=== PATIENT | male | born 1970 | race Caucasian/White ===

== ENCOUNTER 2020-11-24 09:53 | Emergency (ER) | payer OTHER ==
--- OUTSIDE RECORDS SUMMARY | 2020-11-24 10:21 | XMS REPORT ---
:[address] [facility] Address [address] [place], [place]. [address] [place] [address] Care Team Providers Name Role Phone Catalan Unavailable [phone] PROBLEMS Type Condition ICD9-CM ESN07-PW Onset Condition SNOMED Code Notes Code Code Dates Status Problem Fatigue, R53.83 Active 90068817 unspecified type Problem GERD without K21.9 Active 718020946 esophagitis Problem Generalized F41.1 Active 94593784 anxiety disorder Problem Rotator cuff M75.101 Active 2072391 syndrome of right shoulder Problem Mixed E78.2 Active 139435031 hyperlipidemia Problem Vitamin D E55.9 Active 76337214 deficiency Problem Vitamin B12 E53.8 Active 966388314 deficiency Problem Uncontrolled type E11.65 Active 239776655 2 diabetes mellitus with hyperglycemia, unspecified whether local intermodal truck driver insulin use ALLERGIES No Known Allergies ENCOUNTERS from 1970 to 2020-08-28 Encounter Location Date Provider Diagnosis [address] [place] Aug, [facility] Catalan Encounter for wellness [address] [place], [place] [address] Z00.00 ; Uncon trolled type 2 diabetes mellitus with hyperglycemia, unspecified whe ther local intermodal truck driver insul in use E11.65 ; Right shoulder pain, unspecifi ed chronicity M25. 511 ; Generalized anx iety disorder F41.1 ; Rotator cuff sy ndrome of right should er M75.101 ; Mixed hyperlipidemia E78.2 ; Impingement syn drome of right shoulder M75.41 ; Irritability an d anger R45.4 ; Glucosu navya R81 ; Fatigue, unsp ecified type R53.83 ; V itamin B12 deficiency E53.8 and Vitamin D deficiency E55. 9 IMMUNIZATIONS Vaccine Route Administration Date Status Afluria single dose IM Intramuscular Aug 21, 2019 Administere d Afluria IM Intramuscular Sep 17, 2018 Administered Vitamin B12 (Cyanocobalamin) IM Intramuscular Aug 21, 2019 Ad ministered Vitamin B12 (Cyanocobalamin) Unknown June 18, 2018 Pen ding Vitamin B12 (Cyanocobalamin) IM Intramuscular April 17, 2018 Ad ministered Adacel (Tdap) IM Intramuscular April 10, 2018 Administered SOCIAL HISTORY Tobacco Use: Social History Observation Description Date Details (start date - stop date) Never Smoker Sex Assigned At : Social History Observation Description Sex Assigned At Unknown PHQ9 Question Answer Notes Little interest or pleasure in doing things Not at all Feeling down, depressed, or hopeless Not at all Trouble falling or staying asleep or sleeping too much Not a t all Feeling tired or having little energy Several days Poor appetite or overeating Not at all Feeling bad about yourself, or that you are a failure, or No t at all have let yourself or your family down Trouble concentrating on things, such as reading the Not at all newspaper or watching television Moving or speaking so slowly that other people could have No t at all noticed; or the opposite, being so fidgety or restless that you have been moving around a lot more than usual Total Score 1 Interpretation Minimal Depression Thoughts that you would be better off or of hurting Not at all yourself in some way Depression Screening Question Answer Notes Over the past two weeks, has the PT felt down, depressed, or hopeless? No Over the past two weeks, has the PT felt little interest or pleasure in No doing things? Alcohol Screen Question Answer Notes Did you have a drink containing alcohol in the past year? No Points 0 Interpretation Negative Tobacco Use/Smoking Question Answer Notes Are you a never smoker REASON FOR REFERRAL No Information VITAL SIGNS Height 68 in Aug, Weight 186.2 lbs Aug, Temperature 97.3 degrees Fahrenheit Aug, BMI 28.31 kg/m2 Aug, Oximetry 99 % Aug, Respiratory Rate 16 /min Aug, Blood pressure systolic 115 mm Hg Aug, Blood pressure diastolic 71 mm Hg Aug, MEDICATIONS Medication SIG (Take, Route, Frequency, Start Date End Date Status Duration) Vitamin B-12 ER 2000 MCG 1 tablet Orally Once a day for 30 Active day(s) Vitamin D3 2000 UNIT 1 capsule Orally Once a day Active Simvastatin 20 MG 1 tablet in the evening Orally Active Once a day for 90 days MetFORMIN HCl ER 500 MG 2 tablet Orally BID for 90 days Active MetFORMIN HCl ER 500 MG TAKE ONE TABLET BY MOUTH TWICE A Active DAY for 90 PROCEDURES No Information RESULTS No Results REASON FOR VISIT Wellness, lab f/u *[phone] OUTSIDE MEDICAL (GENERAL) HISTORY Type Description Date Medical History Uncontrolled type 2 diabetes mellitus wi th hyperglycemia, unspecified whether shelter insulin us e Medical History Fatigue, unspecified type Medical History GERD without esophagitis Medical History Mixed hyperlipidemia Medical History Vitamin D deficiency Medical History Vitamin B12 deficiency Goals Section No Information Health Concerns No Information MEDICAL EQUIPMENT No Information MENTAL STATUS No Information FUNCTIONAL STATUS No Information ASSESSMENTS Encounter Date Diagnosis Notes Aug, Encounter for wellness examination in ad ult (ICD-10 - Z00.00) Aug, Mixed hyperlipidemia (ICD-10 - E78.2) Aug, Rotator cuff syndrome of right shoulder (ICD-10 - M75.101) Aug, Irritability and anger (ICD-10 - R45.4) Aug, Uncontrolled type 2 diabetes mellitus wi th hyperglycemia, 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 83) Aug, Glucosuria (ICD-10 - R81) Aug, Vitamin D deficiency (ICD-10 - E55.9) Aug, Vitamin B12 deficiency (ICD-10 - E53.8) PLAN OF TREATMENT Medication Medication Name Sig Start Date Stop Date Simvastatin 20 MG 1 tablet in the evening Orally Once a day for 90 days MetFORMIN HCl ER 500 MG 2 tablet Orally BID for 90 days Vitamin D3 2000 UNIT 1 capsule Orally Once a day Treatment Notes Assessment Notes Clinical Notes Encounter for wellness examination -- Wellness Exam performe d without in adult /Rectal examination (Asymptomatic) at this time.-- Encourage regular exercise and healthy diet.-- Take a baby aspirin daily: N/A.-- Consider having a flu vaccine every August or September.-- A complete exam is suggested yearly.-- Reminder to always use seat belts.-- It is suggested that lipids (fat and cholesterol) be checked on a yearly basis. The goal here would be to keep the bad cholesterol level (LDL) below 100.-- For colorectal cancer screening, return 1 stool hemoccult cards (test for hidden blood). The [employer] also suggests colonoscopy at age 50 and then every 10 years. If interested in this test, we can refer you to a surgeon or retort pre cooker.-- It is a good idea to periodically check the scrotum/testis for any new lumps or changes.-- It is a good idea to have a complete eye exam a minimum of every 3 years. Increased eye pressure is called glaucoma and it is a common cause of blindness.-- Encouraged on making dental appointment every 6-12 months for check-up-- Every 10 years, it is brewster to have a tuberculosis skin test (PPD) and D-Tetanus.-- Avoid excessive sun exposure.-- Apply sunscreen when outside. Check skin for any abnormal lesions/moles. Uncontrolled type 2 diabetes INCREASED to METFORMIN 500 mg E R 2 mellitus with hyperglycemia, tabs BID. STOPPED Glyxambi. Sathish e unspecified whether local intermodal truck driver effect and instructions given. , insulin use Diabetes Education Diabetes is a disorder that disrupts the way your body uses glucose (sugar). It is a chronic medication condition that requires regular monitoring and treatment throughout your life. Treatment includes: lifestyle modification, self-care measures, and medication. Fortunately, these treatments can keep the blood sugar levels close to normal and minimize the risk of developing complications. The primary blood test to measure the progress of diabetes is the Hemoglobin A1c. Normal levels is less than 7.0 but less than 6.5 is considered excellent control. Fasting blood sugars should be in the range of 80-120 while random blood sugars should range below 200 especially after meals. Carbohydrate (sugar) intake for diabetics should be below 45 grams per meal and 15 grams per snack. Diabetic preventive care is vital to prevent complications, so it is important to have yearly diabetic eye and foot exams with specialists. If your diabetes is not controlled, then contact your doctor to further address.Medication may need to be adjusted and/or added. Right shoulder pain, unspecified Discussed differential diag nosis chronicity with patient. Education given. Discussed supportive measures for symptomatic relief. X-ray reviewed. Avoid any exacerbating activity. Discussed treatment options including but not limited to physical therapy, cortisone injection, referral to orthopedic. Discussed usage of vsxj-yse-istvmam analgesic at this time. Use as directed. Minimal relief with frpl-mdi-qhdxyvn medication. No change with cortisone injection. ORDERED MRI. WIll refer to Ortho once MRI resulted. Generalized anxiety disorder Actively listented. Support giv en. Discussed treatment options. Medication + Counseling/Therapy. Infomation provided for psychologist for therapy options, encouraged to call to make an appt. DECLINED ANY MEDICATIONS. Concern with burnout with work. Education given. - Anxiety Education: Anxiety is a feeling of anxiousness or nervousness. Being extremely anxious or worried on most days for 6 months or longer is not normal. This is a type of anxiety disorder. This disorder can make it hard to do everyday tasks. Other types of anxiety include: post traumatic stress disorder, panic disorder, and phobias. Symptoms of anxiety may include: feeling worried or on the edge, trouble sleeping, or forgetting things. Feelings of stomach aches or chest tightness is another common symptom. Medicine, exercise, and other treatments like counseling, talk therapy, yoga, and massages maybe necessary to treat this disorder. Mixed hyperlipidemia INCREASED TO 20 mg. Hyperlipidemia Education: Hyperlipidemia refers to increased levels of lipids(fats) in the blood, including cholesterol and triglycerides. This can significantly increase your risk of developing coronary artery disease and peripheral artery disease. This can cause chest pain, heart attack, stroke, and fatigue. Treatment is recommended to decrease your risk. Treatment includes: lifestyle modification, low salt/low fat diet, exercise, tobacco cessation, low alcohol intake and sometimes medication. Blood tests (TC,TG, HDL, LDL) are utilized to determine treatment regimens. TC(Total cholesterol) should be below 200. TG(Total Triglycerides) should be below 150. HDL(Good cholesterol) should be above 40. LDL(Bad Cholesterol) should be below 130(if you have one risk factor) or less than 100( if you have more than one risk factor or have DM/CAD/PVD). Compliance with medication and treatment is vital. If you have questions, talk to your doctor. Irritability and anger Counseling given. Education given. Glucosuria Likely due to Dm and medications. Will repeat. Fatigue, unspecified type Increase sunlight + Hydration + Exercise. On Supplements for Vit B12 and Vit D. Vitamin B12 deficiency On supplements: Encouraged on compliance. Discussed IM vs. PO. Will trial IM. Side effect discussed. Vitamin D deficiency Discussed on causes of Vit D Def. Increase sunlight + Hydration + Exercise + Food High in Vit D and OTC supplements. Treatment Notes Test Name Order Date Lipid Panel With LDL/HDL Ratio 2020-08-28 UA/M w/rflx Culture, Comp 2020-08-28 Hemoglobin A1c 2020-08-28 Comp. Metabolic Panel (14) (CMP) 2020-08-28 Uric Acid, Serum 2020-08-28 CBC With Differential/Platelet 2020-08-28 TSH reflex to T4F 2020-08-28 MRI Shoulder Rt Wo Cont 2020-08-28 Next Appt Details 3 Months + Labs 1 week before Reason: Provider Name:Anselmo Catalan, 2020-12-01 0 8:15:00 AM, [address], [address], [place], [address], Provider Name:Anselmo Catalan, 2020-12-07 0 8:20:00 AM, [address], [address], [place], [address], Insurance Providers Payer Name Payer Payer Insured Patient Coverage Coverage End Address Phone Name Relationship to Start Date [place] Insured Community [phone] Bridger Forde self 2017 [employer] [id number] [facility] [address]
--- OUTSIDE RECORDS SUMMARY | 2020-11-24 10:21 | XMS REPORT | Continuity of Care Document ---
:1970 Author Organization [facility] t Address [address] [place] [address] Care Team Providers Name Role Phone Unavailable Unavailable Unavailable Problems This patient has no known problems. Allergies, Adverse Reactions, Alerts This patient has no known allergies or adverse reactions. Medications Ordered Filled Start Stop Current Ordering Indication Dosage Frequency Signature Comments Components Source Medication Medication Date Date Medication? Clinician (SIG) Name Name Vitamin D3 Vitamin D3 2018- 2018- No Anselmo [address] [facility] 04-17 07-21 [facility] :00 [facility] Simvastatin Simvastatin Yes Anselmo [address] [facility] Vitamin Vitamin Yes Anselmo [address] [facility] B-12 ER B-12 ER [facility] MetFORMIN MetFORMIN Yes Anselmo TAKE ONE [facility] HCl ER HCl ER Catalan TABLET BY [facility] - MOUTH Memoria TWICE A l DAY [facility] Immunizations Ordered Filled Immunization Date Status Comments Sourc e Immunization Name Name Afluria single dose Afluria single dose 2019-08-[address] [facility] - [facility]00 [facility] TDAP > 7 TDAP > 7 2018-04-[address] [facility] - Years-Adacel Years-Adacel 00:00:00 [facility] Procedures This patient has no known procedures. Encounters Start End Encounter Admission Attending Care Care Encounter Source Date/Time Date/Time Type Type Clinicians Facility Department ID 2020-08-28 2020-08-28 Outpatient [facility] [id number] [facility] Outpat[facility] ent Clin[facility] 2020-08-13 2020-08-13 [facility] [id number] [facility] 16[facility] 16[facility] [facility] [employer] l Medicine Outpati ent Clinics 2020-08-10 2020-08-10 [facility] [id number] [facility] 08:04:00 08:04:00 [place] - [employer] [facility] Medicine Outpati ent Clinics 2020-08-06 2020-08-06 [facility] [id number] 16:10:00 16:10:00 [place] - [employer] [facility] Medicine Outpati ent Clinics 2020-05-27 2020-05-27 [facility] [id number] 10:00:00 10:00:00 [place] - [employer] [facility] Medicine Outpati ent Clinics 2020-02-18 2020-02-18 [facility] [id number] [address] 08:30:00 08:30:00 [place] [employer] [facility] Medicine Outpati ent Clinics 2019-11-19 2019-11-19 [facility] [id number] 08:00:00 08:00:00 t [employer] [facility] Medicine Outpati ent Clinics 2019-11-12 2019-11-12 [facility] [id number] [address] 16:42:00 16:42:00 [place] [employer] [facility] Medicine Outpati ent Clinics 2019-08-21 2019-08-21 [facility] [id number] [address] 08:00:00 08:00:00 [place] [employer] [facility] Medicine Outpati ent Clinics 2019-08-05 2019-08-05 [facility] [id number] 13:30:00 13:30:00 [place] [employer] [facility] Medicine Outpati ent Clinics 2019-05-21 2019-05-21 [facility] [id number] [address] 08:15:00 08:15:00 [place] [employer] [facility] - Drive [facility] Medicine Outpati ent Clinics 2018-12-20 2018-12-20 [facility] [id number] 09:45:00 09:45:00 [place] [employer] [facility] - Drive [facility] Medicine Outpati ent Clinics 2018-06-18 2018-06-18 [facility] [id number] 08:45:00 08:45:00 [place] [employer] [facility] - Drive [facility] Medicine Outpati ent Clinics 2018-06-11 2018-06-11 [facility] [id number] [address] 11:57:00 11:57:00 [place] [employer] [facility] - Drive [facility] Medicine Outpati ent Clinics 2018-04-17 2018-04-17 [facility] [id number] [address] 09:00:00 09:00:00 [place] [employer] [facility] - Drive [facility] Medicine Outpati ent Clinics 2018-04-11 2018-04-11 [facility] [id number] 07:21:00 07:21:00 [place] [employer] [facility] - Drive [facility] Medicine Outpati ent Clinics 2018-04-10 2018-04-10 [facility] [id number] 10:30:00 10:30:00 [place] [employer] [facility] Medicine Outpati ent Clinics Results This patient has no known results.
--- NOTE | 2020-11-24 10:54 | RAD REPORT ---
EXAM DESCRIPTION: RAD - Forearm Right - 11/24/2020 10:47 am CLINICAL HISTORY: PAIN, blunt force trauma COMPARISON: No comparisons FINDINGS: No fracture is identified. There is no dislocation or periosteal reaction noted. No foreign body seen. No large hematoma in the soft tissues. IMPRESSION: Negative right forearm examination for acute or significant finding.
--- NOTE | 2020-11-24 10:55 | RAD REPORT ---
EXAM DESCRIPTION: RAD - Forearm Left - 11/24/2020 10:47 am CLINICAL HISTORY: PAIN, blunt force trauma COMPARISON: None. FINDINGS: No fracture is identified. There is no dislocation or periosteal reaction noted. No foreign body seen. No large hematoma in the soft tissues. IMPRESSION: Negative left forearm examination for acute or significant finding.
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
--- NOTE | 2020-11-24 11:05 | EDPHYS ---
Physician Documentation [facility] Name: Gabino Forde Age: 50 yrs Sex: Male : 1970 Arrival Date: 11/24/2020 Time: 09:55 Bed 15 Private MD: ED Physician Devyn Gil HPI: 11/24 10:13 This 50 yrs old Male presents to ER via Ambulatory with complaints of Arm rn Injury. 10:13 The patient or guardian complains of injury, pain. The complaints affect the dorsal rn aspect of right forearm, dorsal aspect of left forearm. Context: The problem was sustained at a parking lot, at a store, resulted from a crush injury. Onset: The symptoms/episode began/occurred just prior to arrival. Modifying factors: The symptoms are alleviated by remaining still, the symptoms are aggravated by movement. Severity of symptoms: At their worst the symptoms were moderate, in the emergency department the symptoms are unchanged. The patient has not experienced similar symptoms in the past. Reports jumpstarting battery, kidd fell on his arms, briefly trapped until latch opened, reports pain to bilateral forearms, worse on left. . Historical: - Allergies: 10:04 No Known Allergies; ll1 - PMHx: 10:04 High Cholesterol; diabetes type 2; ll1 - PSHx: 10:04 None; ll1 - Immunization history:: Flu vaccine is up to date. - Social history:: Smoking status: Patient denies any tobacco usage or history of. - Family history:: not pertinent. - Hospitalizations: : No recent hospitalization is reported. ROS: 10:13 Constitutional: Negative for fever, chills, and weight loss, MS/Extremity: + injury and rn pain to bilateral forearms. Skin: + linear contusions to bilateral forearms Exam: 10:13 Constitutional: This is a well developed, well nourished patient who is awake, alert, rn and in no acute distress. MS/ Extremity: Pulses equal, no cyanosis. Neurovascular intact. Full, normal range of motion. + mild tenderness bilateral distal/dosral forearms with linear contusions, no open wounds. Vital Signs: 10:04 BP 135 / 88; Pulse 93; Resp 18; Temp 98.6; Pulse Ox 99% ; Weight 81.65 kg; Height 5 ft. ll1 8 in. (172.72 cm); Pain 9/10; 11:33 BP 124 / 81; Pulse 87; Resp 17; Pulse Ox 97% on R/A; Pain 3/10; ll1 10:04 Body Mass Index 27.37 (81.65 kg, 172.72 cm) ll1 MDM: 10:05 Patient medically screened. rn 11:05 Differential diagnosis: closed fracture, contusion. Data reviewed: vital signs, nurses rn notes, radiologic studies, plain films, and as a result, I will discharge patient. Counseling: I had a detailed discussion with the patient and/or guardian regarding: the historical points, exam findings, and any diagnostic results supporting the discharge/admit diagnosis, radiology results, the need for outpatient follow up, to return to the emergency department if symptoms worsen or persist or if there are any questions or concerns that arise at home. Special discussion: I discussed with the patient/guardian in detail that at this point there is no indication for admission to the hospital. It is understood, however, that if the symptoms persist or worsen the patient needs to return immediately for re-evaluation. 11:05 Test interpretation: by ED physician or midlevel provider: plain radiologic studies, No tax intern fracture on xrays of left/right forearms. 11/24 10:13 Order name: XRAY Forearm RIGHT; Complete Time: 11:04 rn 11/24 10:13 Order name: XRAY Forearm LEFT; Complete Time: 11:04 rn Administered Medications: No medications were administered Disposition: 11/24/20 11:05 Discharged to Home. Impression: Contusion of left forearm, Contusion of right forearm. - Condition is Stable. - Discharge Instructions: Contusion. - Medication Reconciliation Form, Thank You Letter, Antibiotic Education, Prescription Opioid Use form. - Follow up: Private Physician; When: As needed; Reason: Recheck today's complaints, Re-evaluation by your physician. - Problem is new. - Symptoms have improved. Signatures: Dispatcher [employer] EDMS Devyn Gil MD MD rn Leal, Jahala, RN RN jl7 Jaleel Leon RN RN ll1 Corrections: (The following items were deleted from the chart) 11:36 11:05 11/24/2020 11:05 Discharged to Home. Impression: Contusion of left forearm; jl7 Contusion of right forearm. Condition is Stable. Forms are Medication Reconciliation Form, Thank You Letter, Antibiotic Education, Prescription Opioid Use. Follow up: Private Physician; When: As needed; Reason: Recheck today's complaints, Re-evaluation by your physician. Problem is new. Symptoms have improved. rn
[2020-11-24 11:47] VITALS: BP 135/88; TEMP 98.6; O2SAT 99
== END 2020-11-24 11:36 | disposition home or self-care (01) ==
LOC: ER 09:53
DX: S50.12XA Contusion of left forearm, initial encounter (principal); S50.11XA Contusion of right forearm, initial encounter; W23.0XXA Caught, crushed, jammed, or pinched between moving objects, initial encounter; Y93.89 Activity, other specified; Y92.481 Parking lot as the place of occurrence of the external cause
CPT/HCPCS: 99283

== ENCOUNTER 2021-03-08 09:25 | Emergency (ER) | payer OTHER ==
--- OUTSIDE RECORDS SUMMARY | 2021-03-08 09:28 | XMS REPORT | Continuity of Care Document ---
:1970 Author Organization [facility] t Address [address] [place] [address] Care Team Providers Name Role Phone Unavailable Unavailable Unavailable Problems This patient has no known problems. Allergies, Adverse Reactions, Alerts This patient has no known allergies or adverse reactions. Medications Ordered Filled Start Stop Current Ordering Indication Dosage Frequency Signature Comments Components Source Medication Medication Date Date Medication? Clinician (SIG) Name Name Vitamin D3 Vitamin D3 2018 2018- No Anselmo [address] [facility] 04-17[facility] :00 [facility] Clinics Simvastatin Simvastatin Yes Anselmo [address] [facility] Vitamin Vitamin Yes Anselmo [address] [facility] B-12 ER B-12 ER [facility] - [facility] MetFORMIN MetFORMIN Yes Anselmo TAKE ONE [facility] HCl ER HCl ER [facility]an TABLET BY [facility] - MOUTH [facility] TWICE A l DAY [facility] ent [facility] Immunizations Ordered Filled Immunization Date Status Comments Sourc e Immunization Name Name Afluria single dose Afluria single dose 2019-08-[address] [facility] - 00:[facility]00 [facility] Clin[facility] TDAP > 7 TDAP > 7 2018-04-[address] [facility] - Years-Adacel Years-Adacel 00:00:00 [facility] Procedures This patient has no known procedures. Encounters Start End Encounter Admission Attending Care Care Encounter Source Date/Time Date/Time Type Type Clinicians Facility Department ID 2020-12-07 2020-12-07 Outpatient [facility] [id number] [facility] 2020-08-28 2020-08-28 Outpatient [facility] [id number] [facility] 2020-08-13 2020-08-13 [facility] [id number] [facility] 16:[facility]00 16:[facility]:00 [place] [facility] Out[facility] Clin[facility] 2020-08-10 2020-08-10 [facility] [id number] [facility] 08:04:00 08:04:00 [place] [facility] 2020-08-06 2020-08-06 [facility] [id number] [facility] 16:10:00 16:10:00 [place] [facility] 2020-05-27 2020-05-27 [facility] [id number] [facility] 10[facility]00:00 10:00:00 t [place] [facility] 2020-02-18 2020-02-18 [facility] [id number] 08:30:00 08:30:00 [place] [facility] [employer] [facility] Clin[facility] 2019-11-19 2019-11-19 [facility] [id number] 08:00:00 08:00:00 t [place] [facility] Out[facility] Clin[facility] 2019-11-12 2019-11-12 [facility] [id number] 16:42:00 16:42:00 t [place] [facility] - [facility] Out[facility] Clin[facility] 2019-08-21 2019-08-21 [facility] [id number] 08:00:00 08:00:00 t [place] [facility] - [facility] Out[facility] Clin[facility] 2019-08-05 2019-08-05 [facility] [id number] [address] 13:30:00 13:30:00 [place] [facility] [employer] [facility] - [facility] 2019-05-21 2019-05-21 [facility] [id number] 08:15:00 08:15:00 [place] [employer] [facility] - Drive [facility] Clin[facility] 2018-12-20 2018-12-20 [facility] [id number] [facility] 09:45:00 09:45:00 [place] [employer] - Drive [facility] Clin[facility] 2018-06-18 2018-06-18 [facility] [id number] 08:45:00 08:45:00 [place] [employer] - [employer] Out[facility] Clin[facility] 2018-06-11 2018-06-11 [facility] [id number] 11:57:00 11:57:00 t [place] [employer] - [employer] Out[facility] Clin[facility] 2018-04-17 2018-04-17 [facility] [id number] 09:00:00 09:00:00 [place] [employer] - [employer] Clin[facility] 2018-04-11 2018-04-11 [facility] [id number] 07:21:00 07:21:00 [place] [employer] - [employer] [facility] Out[facility] Clin[facility] 2018-04-10 2018-04-10 [facility] [id number] 10:30:00 10:30:00 t [place] [facility] [facility] [employer] Clin[facility] Results This patient has no known results.
[2021-03-08 10:16] LABS: Urine Blood Negative (Negative); Urine Glucose Negative (Negative); Urine Protein Trace (Negative); Urine Specific Gravity 1.025 (1.005-1.030); Urine pH 5.5 (5.0-7.0)
[2021-03-08] MEDS ORDERED: MORPHINE 4 MG/ML SYR ONE (10:16)
[2021-03-08] MEDS ORDERED: ONDANSETRON 4 MG/2 ML VIAL ONE (10:16)
[2021-03-08] MEDS ORDERED: NA CHLORIDE 0.9% 1,000 ML ONE (10:16)
[2021-03-08 10:27] LABS: Basophils % 0.2 % (0-1.3); Hematocrit 44.8 % (39.6-49.0); Lymphocytes % 31.3 % (15.3-44.8); MPV 7.3 fL (7.6-11.3); RBC Red Blood Cell Count 5.51 M/uL (4.33-5.43)
[2021-03-08 10:38] LABS: Urine Bacteria <20 /HPF (NONE SEEN); Urine Mucus MOD /HPF (NONE SEEN); Urine RBC NONE SEEN /HPF (NONE SEEN)
--- NOTE | 2021-03-08 10:48 | RAD REPORT ---
EXAM DESCRIPTION: CT - Abdomen Pelvis W Contrast - 03/08/2021 10:15 am CLINICAL HISTORY: Abdominal pain/left flank pain COMPARISON: none. TECHNIQUE: Computed axial tomography of the abdomen pelvis was obtained. 100 cc Isovue-300 was admin istered intravenously. Oral contrast was not requested which limits evaluation of bowel and appendix. All CT scans are performed using dose optimization technique as appropriate and may include automated exposure control or mA/KV adjustment according to patient size. FINDINGS: The liver, spleen, pancreas, and adrenals appear unremarkable. Multiple gallstones. The gallbladder wall is not thickened. Bilateral renal cysts. There is no evidence of diverticulitis. Mild stranding is present within the omentum of the left lower abdomen at the level of the kidneys. A vague 2 centimeter low-density structure is present. This probably represents mesenteric fat infarc t. 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
[2021-03-08 10:52] LABS: ALT/SGPT 47 U/L (12-78); AST/SGOT 27 U/L (15-37); Albumin 3.6 g/dL (3.4-5.0); Alkaline Phosphatase 70 U/L (45-117); BUN Blood Urea Nitrogen 15 mg/dL (7-18); Bicarbonate 26 mmol/L (21-32); Bilirubin Direct 0.1 mg/dL (0-0.2); Bilirubin Total 0.3 mg/dL (0.2-1.0); Glucose Level 116 mg/dL (74-106); Lipase 98 U/L (73-393); Potassium 3.9 mmol/L (3.5-5.1); Protein, Total 7.8 g/dL (6.4-8.2); Sodium Level 139 mmol/L (136-145)
--- NOTE | 2021-03-08 11:45 | EDPHYS ---
Physician Documentation [facility] Name: Gabino Forde Age: 50 yrs Sex: Male : 1970 Arrival Date: 03/08/2021 Time: 09:26 Bed 13 Private MD: [facility] ED Physician South Salazar HPI: 03/08 10:06 This 50 yrs old Male presents to ER via Ambulatory with complaints of Flank pm1 Pain - left. 10:06 The patient complains of pain in the left low back. The pain does not radiate. Onset: pm1 The symptoms/episode began/occurred 2 day(s) ago. Modifying factors: The symptoms are alleviated by nothing. the symptoms are aggravated by movement. Associated signs and symptoms: Pertinent positives: abdominal pain in LLQ, Pertinent negatives: diarrhea, dysuria, fever, nausea, vomiting. Severity of pain: in the emergency department the pain is actually worse. The patient has not experienced similar symptoms in the past. The patient has not recently seen a physician. Historical: - Allergies: 09:47 No Known Allergies; bp - Home Meds: 09:48 Metformin Oral [Active]; Simvastatin Oral [Active]; iw - PMHx: 09:47 Diabetes Type 2; High Cholesterol; bp - Immunization history:: Adult Immunizations up to date. - Social history:: Smoking status: Patient denies any tobacco usage or history of. ROS: 10:06 Constitutional: Negative for fever, chills, and weight loss, Cardiovascular: Negative pm1 for chest pain, palpitations, and edema, Respiratory: Negative for shortness of breath, cough, wheezing, and pleuritic chest pain. 10:06 : Negative for injury, bleeding, discharge, and swelling, MS/Extremity: Negative for injury and deformity, Skin: Negative for injury, rash, and discoloration, Neuro: Negative for headache, weakness, numbness, tingling, and seizure. 10:06 Abdomen/GI: Positive for abdominal pain, of the left lower quadrant, Negative for nausea, vomiting, and diarrhea, constipation. 10:06 Back: Positive for flank pain, on the left. Exam: 10:06 Constitutional: This is a well developed, well nourished patient who is awake, alert, pm1 and in no acute distress. Head/Face: Normocephalic, atraumatic. 10:06 Skin: Warm, dry with normal turgor. Normal color with no rashes, no lesions, and no evidence of cellulitis. MS/ Extremity: Pulses equal, no cyanosis. Neurovascular intact. Full, normal range of motion. 10:06 Cardiovascular: Exam negative for acute changes, Rate: normal, Rhythm: regular, Pulses: no pulse deficits are appreciated. 10:06 Respiratory: Exam negative for acute changes, respiratory distress, shortness of breath, Breath sounds: are clear throughout. 10:06 Abdomen/GI: Inspection: abdomen appears normal, Palpation: soft, in all quadrants, mild abdominal tenderness, in the left upper quadrant and left lower quadrant. 10:06 Back: pain, that is mild, of the left low back, normal spinal alignment noted, vertebral tenderness, is not appreciated. 10:06 Neuro: Exam negative for acute changes, Orientation: is normal, Mentation: is normal, Motor: is normal, moves all fours. Vital Signs: 09:45 BP 120 / 80; Pulse 79; Resp 16; Temp 97.9; Pulse Ox 98% on R/A; Weight 85.28 kg; Height bp 5 ft. 8 in. (172.72 cm); Pain 9/10; 10:25 Pulse 79; Resp 16; Pulse Ox 97% ; bp 10:56 BP 118 / 74; Pulse 75; Resp 16; Pulse Ox 98% ; bp 12:06 BP 119 / 78; Pulse 75; Resp 16; Pulse Ox 100% ; bp 13:15 BP 111 / 81; Pulse 72; Resp 16; Temp 98; Pulse Ox 99% ; bp 09:45 Body Mass Index 28.59 (85.28 kg, 172.72 cm) bp MDM: 09:43 Patient medically screened. [facility] 11:35 Physician consultation: Ramana Hammonds MD was contacted at 11:35, regarding consult, pm1 patient's condition, outpatient follow-up, in 2-3 days, discharge the patient home with antibiotics and pain medications. Will see him in the office on Monday or this week. 11:46 Data reviewed: vital signs. Data interpreted: Pulse oximetry: on room air is 99 %. pm1 Interpretation: normal. 03/08 09:49 Order name: Basic Metabolic Panel; Complete Time: 10:56 pm1 03/08 09:49 Order name: CBC with Diff; Complete Time: 10:56 pm1 03/08 09:49 Order name: Hepatic Function; Complete Time: 10:56 pm1 03/08 09:49 Order name: Lipase; Complete Time: 10:56 pm1 03/08 09:49 Order name: Urine Microscopic Only; Complete Time: 10:56 pm1 03/08 10:16 Order name: Urine Dipstick-Ancillary EDMS 03/08 09:54 Order name: CT Abd/Pelvis - IV Contrast Only; Complete Time: 10:56 pm1 03/08 11:11 Order name: EKG; Complete Time: 11:12 pm1 03/08 12:56 Order name: CREATININE WHOLE BLOOD; Complete Time: 13:25 EDMS 03/08 09:49 Order name: IV Saline Lock; Complete Time: 10:22 pm1 03/08 09:49 Order name: Labs collected and sent; Complete Time: 10:22 pm1 03/08 09:49 Order name: Urine Dipstick-Ancillary (obtain specimen); Complete Time: 10:22 pm1 03/08 11:11 Order name: EKG - Nurse/Tech; Complete Time: 11:17 pm1 Administered Medications: 10:10 Drug: NS 0.9% 1000 ml Route: IV; Rate: 1000 ml; Site: right forearm; bp 12:52 Follow up: IV Status: Completed infusion; IV Intake: 1000ml bp 10:10 Drug: morphine 4 mg Route: IVP; Site: right forearm; bp 10:58 Follow up: Response: No adverse reaction bp 10:10 Drug: Zofran (Ondansetron) 4 mg Route: IVP; Site: right hand; bp 10:58 Follow up: Response: No adverse reaction bp 12:00 Drug: Cipro (ciprofloxacin) 500 mg Route: PO; bp 12:52 Follow up: Response: No adverse reaction bp 12:45 Drug: Flagyl 500 mg Volume: 100 ml; Route: IVPB; Rate: 200 ml/hr; Infused Over: 30 bp mins; Site: right forearm; 13:30 Follow up: IV Status: Completed infusion; IV Intake: 100ml bp Disposition: 03/08/21 11:44 Discharged to Home. 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 - Condition is Stable. - Discharge Instructions: Abdominal Pain, Adult. - Prescriptions for Flagyl 500 mg Oral Tablet - take 1 tablet by ORAL route every 8 hours for 10 days; 30 tablet. Tylenol- Codeine #3 300-30 mg Oral Tablet - take 2 tablet by ORAL route every 4-6 hours As needed; 30 tablet. Cipro 500 mg Oral Tablet - take 1 tablet by ORAL route every 12 hours for 10 days; 20 tablet. - Medication Reconciliation Form, Thank You Letter, Antibiotic Education, Prescription Opioid Use form. - Follow up: Emergency Department; When: As needed; Reason: Worsening of condition. Follow up: Ramana Hammonds MD; When: 2 - 3 days; Reason: Recheck today's complaints, Continuance of care, Re-evaluation by your physician. - Problem is new. - Symptoms have improved. Addendum: 03/10/2021 06:39 Co-signature as Attending Physician, South Salazar MD I agree with the assessment and c baevers plan of care. Signatures: Dispatcher [employer] South Hernandez MD MD cha Williams, Irene, RN RN iw Timbo Ybarra NP INKJET OPERATOR pm1 Aristeo Salinas RN RN bp Corrections: (The following items were deleted from the chart) 03/08 09:48 09:47 Home Meds: Unable to obtain; bp iw 13:30 11:44 03/08/2021 11:44 Discharged to Home. Impression: Small mesenteric fat infarct bp within the left abdomen. Condition is Stable. Forms are Medication Reconciliation Form, Thank You Letter, Antibiotic Education, Prescription Opioid Use. Follow up: Emergency Department; When: As needed; Reason: Worsening of condition. Follow up: Dr. Ramana Hammonds; When: 2 - 3 days; Reason: Recheck today's complaints, Continuance of care, Re-evaluation by your physician. Problem is new. Symptoms have improved. pm1
--- NOTE | 2021-03-08 11:45 | ER ---
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 Coronavirus screen: At this time, the client does not indicate any symptoms associated with coronavirus-19. Ebola Screen: Patient negative for fever greater than or equal to 101.5 degrees Fahrenheit, and additional compatible Ebola Virus Disease symptoms Patient denies exposure to infectious person. Patient denies travel to an Ebola-affected area in the 21 days before illness onset. No symptoms or risks identified at this time. Initial Sepsis Screen: Does the patient meet any 2 criteria? No. Patient's initial sepsis screen is negative. Does the patient have a suspected source of infection? No. Patient's initial sepsis screen is negative. Risk Assessment: Do you want to hurt yourself or someone else? Patient reports no desire to harm self or others. Onset of symptoms was March 06, 2021. 09:45 Method Of Arrival: Ambulatory iw 09:45 Acuity: LARRY 3 iw Triage Assessment: 09:45 General: Appears in no apparent distress. uncomfortable, Behavior is cooperative, bp appropriate for age, anxious. Pain: Complains of pain in posterior aspect of left lateral abdomen. EENT: No deficits noted. Neuro: No deficits noted. Cardiovascular: No deficits noted. Respiratory: No deficits noted. GI: No signs and/or symptoms were reported involving the gastrointestinal system. : No signs and/or symptoms were reported regarding the genitourinary system. Derm: No deficits noted. Musculoskeletal: No deficits noted. Historical: - Allergies: 09:47 No Known Allergies; bp - Home Meds: 09:48 Metformin Oral [Active]; Simvastatin Oral [Active]; iw - PMHx: 09:47 Diabetes Type 2; High Cholesterol; bp - Immunization history:: Adult Immunizations up to date. - Social history:: Smoking status: Patient denies any tobacco usage or history of. Screenin:47 Abuse screen: Denies threats or abuse. Denies injuries from another. Nutritional bp screening: No deficits noted. Tuberculosis screening: No symptoms or risk factors identified. Fall Risk None identified. Assessment: 09:45 General: SEE TRIAGE NOTE. bp 10:25 Reassessment: PT RETURNED FROM CT. bp 10:56 Reassessment: No changes from previously documented assessment. Patient and/or family bp updated on plan of care and expected duration. Pain level reassessed. Patient is alert, oriented x 3, equal unlabored respirations, skin warm/dry/pink. 12:00 Reassessment: D/C ON HOLD FOR IV ABX. bp 13:28 Reassessment: PT D/C HOME AMBULATORY, DX WITH MESENTERIC FAT INFARCT. bp Vital Signs: 09:45 BP 120 / 80; Pulse 79; Resp 16; Temp 97.9; Pulse Ox 98% on R/A; Weight 85.28 kg; Height bp 5 ft. 8 in. (172.72 cm); Pain 9/10; 10:25 Pulse 79; Resp 16; Pulse Ox 97% ; bp 10:56 BP 118 / 74; Pulse 75; Resp 16; Pulse Ox 98% ; bp 12:06 BP 119 / 78; Pulse 75; Resp 16; Pulse Ox 100% ; bp 13:15 BP 111 / 81; Pulse 72; Resp 16; Temp 98; Pulse Ox 99% ; bp 09:45 Body Mass Index 28.59 (85.28 kg, 172.72 cm) bp ED Course: 09:26 Patient arrived in ED. am2 09:27 Anselmo Catalan DO is Private Physician. am2 09:41 Timbo Ybarra NP is PHCP. pm1 09:41 South Salazar MD is Attending Physician. pm1 09:45 Aristeo Salinas, THANH is Primary Nurse. bp 09:45 Arm band placed on. bp 09:47 Patient has correct armband on for positive identification. Bed in low position. Call bp light in reach. Side rails up X2. 09:48 Triage completed. iw 10:10 Inserted saline lock: 20 gauge in right forearm, using aseptic technique. Blood bp collected. 10:15 CT Abd/Pelvis - IV Contrast Only In Process Unspecified. EDMS 11:44 Ramana Hammonds MD is Referral Physician. pm1 13:29 No provider procedures requiring assistance completed. IV discontinued, intact, bp bleeding controlled, No redness/swelling at site. Pressure dressing applied. Administered Medications: 10:10 Drug: NS 0.9% 1000 ml Route: IV; Rate: 1000 ml; Site: right forearm; bp 12:52 Follow up: IV Status: Completed infusion; IV Intake: 1000ml bp 10:10 Drug: morphine 4 mg Route: IVP; Site: right forearm; bp 10:58 Follow up: Response: No adverse reaction bp 10:10 Drug: Zofran (Ondansetron) 4 mg Route: IVP; Site: right hand; bp 10:58 Follow up: Response: No adverse reaction bp 12:00 Drug: Cipro (ciprofloxacin) 500 mg Route: PO; bp 12:52 Follow up: Response: No adverse reaction bp 12:45 Drug: Flagyl 500 mg Volume: 100 ml; Route: IVPB; Rate: 200 ml/hr; Infused Over: 30 bp mins; Site: right forearm; 13:30 Follow up: IV Status: Completed infusion; IV Intake: 100ml bp Intake: 12:52 IV: 1000ml; Total: 1000ml. bp 13:30 IV: 100ml; Total: 1100ml. bp Outcome: 11:44 Discharge ordered by MD. pm1 13:29 Discharged to home ambulatory. bp 13:29 Condition: stable 13:29 Discharge instructions given to patient, Instructed on discharge instructions, follow up and referral plans. medication usage, Demonstrated understanding of instructions, follow-up care, medications, Prescriptions given X 3. 13:30 Patient left the ED. bp Signatures: Dispatcher [employer] EDMS Devi Oliva RN RN iw Timbo Ybarra NP HEAD SAWYER pm1 Hannah Ray am2 Aristeo Salinas RN RN bp Corrections: (The following items were deleted from the chart) 09:48 09:47 Home Meds: Unable to obtain; bp iw 09:54 09:45 BP 120 / 80; Pulse 79bpm; Resp 16bpm; Pulse Ox 98% RA; 85.28 kg; Height 5 ft. 8 bp in.; BMI: 28.5; Pain 9/10; iw
[2021-03-08] MEDS ORDERED: CIPROFLOXACIN 400mg IV 400 MG/200 ML BAG IV ONE (12:20)
[2021-03-08] MEDS ORDERED: METRONIDAZOLE 500mg IVPB 500 MG/100 ML BAG IV ONE (12:20)
[2021-03-08 13:59] VITALS: BP 111/81; TEMP 98; O2SAT 99
--- NOTE | 2021-03-09 16:37 | EKG ---
Test Date: 2021-03-08 Test Time: 11:19:09 Technical Translator: KIRT MEASUREMENT RESULTS: Intervals: Rate: 68 KS: 154 QRSD: 78 QT: 380 QTc: 404 [place]: P: 43 KS: 154 QRS: 40 T: 34 INTERPRETIVE STATEMENTS: Normal sinus rhythm Normal ECG No previous ECG available for comparison Electronically Signed On 03-09-21 16:33:24 CDT by Stephen Thomas
== END 2021-03-08 13:30 | disposition home or self-care (01) ==
LOC: ER 09:25
DX: K55.029 Acute infarction of small intestine, extent unspecified (principal); E78.00 Pure hypercholesterolemia, unspecified; E11.9 Type 2 diabetes mellitus without complications
CPT/HCPCS: 93005; 85025; 80048; 36415; 82565; 80076; 83690; 74177; Q9967; J7030; J2405; J0744; 81003; 81015; 99284

== ENCOUNTER 2023-01-07 21:00 | Emergency (ER) | payer OTHER ==
--- OUTSIDE RECORDS SUMMARY | 2023-01-07 21:47 | XMS REPORT | Continuity of Care Document ---
:1970 Author Organization [facility] t Address [address] [place] [address] Care Team Providers Name Role Phone Anselmo Catalan Attending Clinician Unavailable Payers Payer Name Policy Type Policy Number Effective Date Expiration Date S ource Community C1 [id number] 2017 [facility] Choice 00:00:00 - [facility] Community C1 [id number] 2017 [facility] Choice 00:00:00 - [facility] Problems Condition Condition Condition Status Onset Resolution Last Treating Co mments Source Name Details Category Date Date Treatment Clinician Date [id number] Body mass Problem Com mon index Spirit [BMI] - [facility]I 31.0-31.9, [facility] [id number] Other Problem Common obesity Spirit due to - [facility]I excess calories [facility] [id number] GERD Problem Common without Spirit esophagiti - CHI s [facility] [id number] Uncontroll Problem Co mmon ed type 2 Spirit diabetes - CHI mellitus St with [facility] hyperglyce [facility] Center unspecifie d whether [facility] insulin use [id number] Calculus Problem Commo n of Spirit gallbladde - CHI r without St cholecysti [facility] without Center obstructio n [id number] Fatty Problem Common liver Spirit - [facility] [id number] Vitamin D Problem Comm on deficiency Spirit - [facility] [id number] Fatigue, Problem Commo n unspecifie Spirit d type - [facility] [id number] Mixed Problem Common hyperlipid Spirit emia [facility] [id number] Vitamin Problem Commo n B12 Spirit deficiency - [facility] [id number] Generalize Problem Com mon d anxiety [facility] disorder [facility] [id number] Rotator Problem Common cuff Spirit syndrome - [facility] of right [facility] [id number] Claustroph Problem Com mon obia [facility] Allergies, Adverse Reactions, Alerts This patient has no known allergies or adverse reactions. Social History Social Habit Start Date Stop Date Quantity Comments Source History of Tobacco Use Co mmon [facility] Sex Assigned At Com mon [facility] Smoking Status Start Date Stop Date Source Never Smoker Common [facility] Medications Ordered Filled Start Stop Current Ordering Indication Dosage Frequency Signature Comments Components Source Medication Medication Date Date Medication? Clinician (SIG) Name Name Vitamin D3 Vitamin D3 2021-0 2022- No 1{capsu Vitamin D3 09645 UNIT 17298 UNIT 02-07 le} 30380 UNIT 00:00: 00:00 00 :00 Vitamin D3 Vitamin D3 2022-0 2022- No 1{capsu Vitamin D3 94390 UNIT 60647 UNIT 02-07 le} 55181 UNIT 00:00: 00:00 00 :00 Vitamin B12 Vitamin B12 2019-0 No 1000ug Common (Cyanocobal (Cyanocobal 9-25 S pirit carrasco) carrasco) 00:00: - [facility] Vitamin B12 Vitamin B12 2019-0 No 1000ug Common (Cyanocobal (Cyanocobal 9-25 S pirit carrasco) carrasco) 00:00: - [facility] Vitamin B12 Vitamin B12 2019-0 No 1000ug Common (Cyanocobal (Cyanocobal 9-25 S pirit carrasco) carrasco) 00:00: - [facility] Vitamin B12 Vitamin B12 2019-0 No 1000ug Common (Cyanocobal (Cyanocobal 9-25 S pirit carrasco) carrasco) 00:00: - [facility] Vitamin B12 Vitamin B12 2019-0 No 1000ug Common (Cyanocobal (Cyanocobal 9-25 S pirit carrasco) carrasco) 00:00: - [facility] 00 [facility] Vitamin B12 Vitamin B12 2019-0 No 1000ug Common (Cyanocobal (Cyanocobal 9-25 S pirit carrasco) carrasco) 00:00: - [facility]I 00 [facility] Vitamin B12 Vitamin B12 2019-0 No 1000ug Common (Cyanocobal (Cyanocobal 9-25 S pirit carrasco) carrasco) 00:00: - [facility]I 00 [facility] Vitamin B12 Vitamin B12 2019-0 No 1000ug Common (Cyanocobal (Cyanocobal 9-25 S pirit carrasco) carrasco) 00:00: - [facility]I 00 [facility] Vitamin B12 Vitamin B12 2019-0 No 1000ug Common (Cyanocobal (Cyanocobal 9-25 S pirit carrasco) carrasco) 00:00: - [facility]I 00 [facility] Vitamin B12 Vitamin B12 2018-0 No 1000ug Common (Cyanocobal (Cyanocobal 7-23 S pirit carrasco) carrasco) 00:00: - [facility]I 00 [facility] Vitamin B12 Vitamin B12 2018-0 No 1000ug Common (Cyanocobal (Cyanocobal 7-23 S pirit carrasco) carrasco) 00:00: - [facility] 00 [facility] Vitamin B12 Vitamin B12 2018-0 No 1000ug Common (Cyanocobal (Cyanocobal 7-23 S pirit carrasco) carrasco) 00:00: - [facility] 00 [facility] Vitamin B12 Vitamin B12 2018-0 No 1000ug Common (Cyanocobal (Cyanocobal 7-23 S pirit carrasco) carrasco) 00:00: - [facility]I 00 [facility] Vitamin B12 Vitamin B12 2018-0 No 1000ug Common (Cyanocobal (Cyanocobal 7-23 S pirit carrasco) carrasco) 00:00: - [facility] 00 [facility] Vitamin B12 Vitamin B12 2018-0 No 1000ug Common (Cyanocobal (Cyanocobal 7-23 S pirit carrasco) carrasco) 00:00: - [facility]I 00 [facility] Vitamin B12 Vitamin B12 2018-0 No 1000ug Common (Cyanocobal (Cyanocobal 7-23 S pirit carrasco) carrasco) 00:00: - [facility]I 00 [facility] Vitamin B12 Vitamin B12 2018-0 No 1000ug Common (Cyanocobal (Cyanocobal 7-23 S pirit carrasco) carrasco) 00:00: - [facility]I 00 [facility] Vitamin B12 Vitamin B12 2018-0 No 1000ug Common (Cyanocobal (Cyanocobal 7-23 S pirit carrasco) carrasco) 00:00: - [facility]I 00 [facility] Vitamin B12 Vitamin B12 2018-0 No 1000ug Common (Cyanocobal (Cyanocobal 5-22 S pirit carrasco) carrasco) 00:00: - [facility]I 00 [facility] Vitamin B12 Vitamin B12 2018-0 No 1000ug Common (Cyanocobal (Cyanocobal 5-22 S pirit carrasco) carrasco) 00:00: - [facility]I 00 [facility] Vitamin B12 Vitamin B12 2018-0 No 1000ug Common (Cyanocobal (Cyanocobal 5-22 S pirit carrasco) carrasco) 00:00: - [facility]I 00 [facility] Vitamin B12 Vitamin B12 2018-0 No 1000ug Common (Cyanocobal (Cyanocobal 5-22 S pirit carrasco) carrasco) 00:00: - [facility]I 00 [facility] Vitamin B12 Vitamin B12 2018-0 No 1000ug Common (Cyanocobal (Cyanocobal 5-22 S pirit carrasco) carrasco) 00:00: - [facility]I 00 [facility] Vitamin B12 Vitamin B12 2018-0 No 1000ug Common (Cyanocobal (Cyanocobal 5-22 S pirit carrasco) carrasco) 00:00: - [facility]I 00 [facility] Vitamin B12 Vitamin B12 2018-0 No 1000ug Common (Cyanocobal (Cyanocobal 5-22 S pirit carrasco) carrasco) 00:00: - [facility]I 00 [facility] Vitamin B12 Vitamin B12 2018-0 No 1000ug Common (Cyanocobal (Cyanocobal 5-22 S pirit carrasco) carrasco) 00:00: - [facility]I 00 [facility] Vitamin B12 Vitamin B12 2018-0 No 1000ug Common (Cyanocobal (Cyanocobal 5-22 S pirit carrasco) carrasco) 00:00: - [facility]I 00 [facility] Vitamin D3 Vitamin D3 2018-0 2018- No Anselmo 1 capsule Common 04-17 Catalan Spirit 00:00: 00:00 - CHI 00 :00 [facility] Simvastatin Simvastatin Yes Anselmo 1 tablet Common Catalan in the Spirit evening [facility] Vitamin Vitamin Yes Anselmo 1 tablet Com mon B-12 ER B-12 ER Catalan Spirit - [facility] MetFORMIN MetFORMIN Yes Anselmo TAKE ONE Common HCl ER HCl ER Catalan TABLET BY Spiri t MOUTH - CHI TWICE A [facility] LORazepam LORazepam No QD LORazepam 0.5 MG 0.5 MG 0.5 MG Simvastatin Simvastatin No Simvastati 20 MG 20 MG n 20 MG metFORMIN metFORMIN No metFORMIN HCl ER 500 HCl ER 500 HCl ER 500 MG MG MG Vitamin Vitamin No 1{table QD Vitamin B-12 ER B-12 ER t} B-12 ER 2000 MCG 2000 MCG 2000 MCG Vitamin D3 Vitamin D3 No 1{capsu QD Vitamin D3 2000 UNIT 2000 UNIT le} 2000 UNIT Simvastatin Simvastatin No 1{table QD Simvastati 20 MG 20 MG t_in_th n 20 MG e_eveni ng} metFORMIN metFORMIN No 2{table BID metFORMIN HCl ER 500 HCl ER 500 t} HCl ER 500 MG MG MG Simvastatin Simvastatin No Simvastati 20 MG 20 MG n 20 MG LORazepam LORazepam No QD LORazepam 0.5 MG 0.5 MG 0.5 MG LORazepam LORazepam No QD LORazepam 0.5 MG 0.5 MG 0.5 MG Simvastatin Simvastatin No Simvastati 20 MG 20 MG n 20 MG metFORMIN metFORMIN No metFORMIN HCl ER 500 HCl ER 500 HCl ER 500 MG MG MG LORazepam LORazepam No QD LORazepam 0.5 MG 0.5 MG 0.5 MG LORazepam LORazepam No QD LORazepam 0.5 MG 0.5 MG 0.5 MG metFORMIN metFORMIN No 2{table BID metFORMIN HCl ER 500 HCl ER 500 t} HCl ER 500 MG MG MG Simvastatin Simvastatin No 1{table QD Simvastati 20 MG 20 MG t_in_th n 20 MG e_eveni ng} Vitamin Vitamin No 1{table QD Vitamin B-12 ER B-12 ER t} B-12 ER 2000 MCG 2000 MCG 2000 MCG Vitamin D3 Vitamin D3 No 1{capsu QD Vitamin D3 2000 UNIT 2000 UNIT le} 2000 UNIT metFORMIN metFORMIN No 2{table BID metFORMIN HCl ER 500 HCl ER 500 t} HCl ER 500 MG MG MG metFORMIN metFORMIN No metFORMIN HCl ER 500 HCl ER 500 HCl ER 500 MG MG MG Vitamin D3 Vitamin D3 No 1{capsu QD Vitamin D3 2000 UNIT 2000 UNIT le} 2000 UNIT LORazepam LORazepam No QD LORazepam 0.5 MG 0.5 MG 0.5 MG Vitamin Vitamin No 1{table QD Vitamin B-12 ER B-12 ER t} B-12 ER 2000 MCG 2000 MCG 2000 MCG Simvastatin Simvastatin No Simvastati 20 MG 20 MG n 20 MG LORazepam LORazepam No QD LORazepam 0.5 MG 0.5 MG 0.5 MG Simvastatin Simvastatin No 1{table QD Simvastati 20 MG 20 MG t_in_th n 20 MG e_eveni ng} Vitamin Vitamin No 1{table QD Vitamin B-12 ER B-12 ER t} B-12 ER 2000 MCG 2000 MCG 2000 MCG Vitamin D3 Vitamin D3 No 1{capsu QD Vitamin D3 2000 UNIT 2000 UNIT le} 2000 UNIT LORazepam LORazepam No QD LORazepam 0.5 MG 0.5 MG 0.5 MG LORazepam LORazepam No QD LORazepam 0.5 MG 0.5 MG 0.5 MG Simvastatin Simvastatin No Simvastati 20 MG 20 MG n 20 MG metFORMIN metFORMIN No metFORMIN HCl ER 500 HCl ER 500 HCl ER 500 MG MG MG Simvastatin Simvastatin No 1{table QD Simvastati 20 MG 20 MG t_in_th n 20 MG e_eveni ng} Vitamin Vitamin No 1{table QD Vitamin B-12 ER B-12 ER t} B-12 ER 2000 MCG 2000 MCG 2000 MCG Vitamin D3 Vitamin D3 No 1{capsu QD Vitamin D3 2000 UNIT 2000 UNIT le} 2000 UNIT LORazepam LORazepam No QD LORazepam 0.5 MG 0.5 MG 0.5 MG LORazepam LORazepam No QD LORazepam 0.5 MG 0.5 MG 0.5 MG Simvastatin Simvastatin No Simvastati 20 MG 20 MG n 20 MG metFORMIN metFORMIN No metFORMIN HCl ER 500 HCl ER 500 HCl ER 500 MG MG MG Simvastatin Simvastatin No 1{table QD Simvastati 20 MG 20 MG t_in_th n 20 MG e_eveni ng} Vitamin D3 Vitamin D3 No 1{capsu QD Vitamin D3 2000 UNIT 2000 UNIT le} 2000 UNIT Simvastatin Simvastatin No 1{table QD Simvastati 20 MG 20 MG t_in_th n 20 MG e_eveni ng} LORazepam LORazepam No QD LORazepam 0.5 MG 0.5 MG 0.5 MG metFORMIN metFORMIN No metFORMIN HCl ER 500 HCl ER 500 HCl ER 500 MG MG MG Vitamin Vitamin No 1{table QD Vitamin B-12 ER B-12 ER t} B-12 ER 2000 MCG 2000 MCG 2000 MCG LORazepam LORazepam No QD LORazepam 0.5 MG 0.5 MG 0.5 MG metFORMIN metFORMIN No 2{table BID metFORMIN HCl ER 500 HCl ER 500 t} HCl ER 500 MG MG MG metFORMIN metFORMIN No metFORMIN HCl ER 500 HCl ER 500 HCl ER 500 MG MG MG metFORMIN metFORMIN No 2{table BID metFORMIN HCl ER 500 HCl ER 500 t} HCl ER 500 MG MG MG Simvastatin Simvastatin No Simvastati 20 MG 20 MG n 20 MG Vitamin D3 Vitamin D3 No 1{capsu QD Vitamin D3 2000 UNIT 2000 UNIT le} 2000 UNIT LORazepam LORazepam No QD LORazepam 0.5 MG 0.5 MG 0.5 MG LORazepam LORazepam No QD LORazepam 0.5 MG 0.5 MG 0.5 MG Simvastatin Simvastatin No 1{table QD Simvastati 20 MG 20 MG t_in_th n 20 MG e_eveni ng} Vitamin Vitamin No 1{table QD Vitamin B-12 ER B-12 ER t} B-12 ER 2000 MCG 2000 MCG 2000 MCG Simvastatin Simvastatin No 1{table QD Simvastati 20 MG 20 MG t_in_th n 20 MG e_eveni ng} Vitamin D3 Vitamin D3 No 1{capsu QD Vitamin D3 2000 UNIT 2000 UNIT le} 2000 UNIT Vitamin Vitamin No 1{table QD Vitamin B-12 ER B-12 ER t} B-12 ER 2000 MCG 2000 MCG 2000 MCG LORazepam LORazepam No QD LORazepam 0.5 MG 0.5 MG 0.5 MG Simvastatin Simvastatin No Simvastati 20 MG 20 MG n 20 MG LORazepam LORazepam No QD LORazepam 0.5 MG 0.5 MG 0.5 MG metFORMIN metFORMIN No 2{table BID metFORMIN HCl ER 500 HCl ER 500 t} HCl ER 500 MG MG MG metFORMIN metFORMIN No metFORMIN HCl ER 500 HCl ER 500 HCl ER 500 MG MG MG Simvastatin Simvastatin No 1{table QD Simvastati 20 MG 20 MG t_in_th n 20 MG e_eveni ng} Vitamin D3 Vitamin D3 No 1{capsu QD Vitamin D3 2000 UNIT 2000 UNIT le} 2000 UNIT Vitamin Vitamin No 1{table QD Vitamin B-12 ER B-12 ER t} B-12 ER 2000 MCG 2000 MCG 2000 MCG LORazepam LORazepam No QD LORazepam 0.5 MG 0.5 MG 0.5 MG Simvastatin Simvastatin No Simvastati 20 MG 20 MG n 20 MG LORazepam LORazepam No QD LORazepam 0.5 MG 0.5 MG 0.5 MG metFORMIN metFORMIN No 2{table BID metFORMIN HCl ER 500 HCl ER 500 t} HCl ER 500 MG MG MG metFORMIN metFORMIN No metFORMIN HCl ER 500 HCl ER 500 HCl ER 500 MG MG MG metFORMIN metFORMIN No metFORMIN HCl ER 500 HCl ER 500 HCl ER 500 MG MG MG metFORMIN metFORMIN No 2{table BID metFORMIN HCl ER 500 HCl ER 500 t} HCl ER 500 MG MG MG Simvastatin Simvastatin No Simvastati 20 MG 20 MG n 20 MG Vitamin D3 Vitamin D3 No 1{capsu QD Vitamin D3 2000 UNIT 2000 UNIT le} 2000 UNIT LORazepam LORazepam No QD LORazepam 0.5 MG 0.5 MG 0.5 MG LORazepam LORazepam No QD LORazepam 0.5 MG 0.5 MG 0.5 MG Simvastatin Simvastatin No 1{table QD Simvastati 20 MG 20 MG t_in_th n 20 MG e_eveni ng} Vitamin Vitamin No 1{table QD Vitamin B-12 ER B-12 ER t} B-12 ER 2000 MCG 2000 MCG 2000 MCG metFORMIN metFORMIN No 2{table BID metFORMIN HCl ER 500 HCl ER 500 t} HCl ER 500 MG MG MG Vitamin Vitamin No 1{table QD Vitamin B-12 ER B-12 ER t} B-12 ER 2000 MCG 2000 MCG 2000 MCG LORazepam LORazepam No QD LORazepam 0.5 MG 0.5 MG 0.5 MG metFORMIN metFORMIN No metFORMIN HCl ER 500 HCl ER 500 HCl ER 500 MG MG MG Simvastatin Simvastatin No 1{table QD Simvastati 20 MG 20 MG t_in_th n 20 MG e_eveni ng} Vitamin D3 Vitamin D3 No 1{capsu QD Vitamin D3 2000 UNIT 2000 UNIT le} 2000 UNIT Immunizations Ordered Immunization Filled Immunization Date Status Commen ts Source Name Name Flucelvax - single Flucelvax - single 2022-08-17 Completed [facility] dose syringe dose syringe 08:43:00 - [facility] Flucelvax - single Flucelvax - single 2022-08-17 Completed Common Spirit dose syringe dose syringe 08:43:00 - [facility] Flucelvax - single Flucelvax - single 2022-08-17 Completed Common [facility] dose syringe dose syringe 08:43:00 - [facility] Flucelvax - single Flucelvax - single 2022-08-17 Completed Common Spirit dose syringe dose syringe 08:43:00 - [facility] Afluria Afluria 2021-09-14 Completed Common [facility] 08:27:00 - [facility] Afluria Afluria 2021-09-14 Completed Common [facility] 08:27:00 - [facility] Afluria Afluria 2021-09-14 Completed Common [facility] 08:27:00 - [facility] Afluria Afluria 2021-09-14 Completed Common [facility] 08:27:00 - [facility] Afluria Afluria 2021-09-14 Completed Common [facility] 08:27:00 - [facility] Afluria Afluria 2021-09-14 Completed Common [facility] 08:27:00 - [facility] Afluria Afluria 2021-09-14 Completed Common [facility] 08:27:00 - [facility] Afluria Afluria 2021-09-14 Completed [facility] 08:27:00 - [facility] Afluria Afluria 2021-09-14 Completed Common [facility] 08:27:00 - [facility] Afluria Afluria 2021-09-14 Completed Common [facility] 08:27:00 - [facility] Afluria Afluria 2021-09-14 Completed [facility] 08:27:00 [facility] Vitamin B12 Vitamin B12 2019-08-21 Completed Common Spiri t (Cyanocobalamin) (Cyanocobalamin) 08:23:00 [facility] Afluria single dose Afluria single dose 2019-08-21 Completed Common [facility] 08:22:00 - [facility] Afluria single dose Afluria single dose 2019-08-21 Completed Common [facility] 08:22:00 - [facility] Afluria single dose Afluria single dose 2019-08-21 Completed [facility] 08:22:00 [facility] Afluria single dose Afluria single dose 2019-08-21 Completed [facility] 08:22:00 [facility] Afluria single dose Afluria single dose 2019-08-21 Completed [facility] 08:22:00 - [facility] Afluria single dose Afluria single dose 2019-08-21 Completed [facility] 08:22:00 [facility] Afluria single dose Afluria single dose 2019-08-21 Completed [facility] 08:22:00 - [facility] Afluria single dose Afluria single dose 2019-08-21 Completed [facility] 08:22:00 - [facility] Afluria single dose Afluria single dose 2019-08-21 Completed [facility] 08:22:00 - [facility] Afluria single dose Afluria single dose 2019-08-21 Completed [facility] 08:22:00 - [facility] Afluria single dose Afluria single dose 2019-08-21 Completed [facility] 08:22:00 - [facility] Afluria single dose Afluria single dose 2019-08-21 Completed [facility] 00:00:00 - [facility] Afluria Afluria 2018-09-17 Completed [facility] 09:57:00 - [facility] Afluria Afluria 2018-09-17 Completed [facility] 09:57:00 - [facility] Afluria Afluria 2018-09-17 Completed [facility] 09:57:00 - [facility] Afluria Afluria 2018-09-17 Completed [facility] 09:57:00 - [facility] Afluria Afluria 2018-09-17 Completed [facility] 09:57:00 - [facility] Afluria Afluria 2018-09-17 Completed [facility] 09:57:00 - [facility] Afluria Afluria 2018-09-17 Completed [facility] 09:57:00 - [facility] Afluria Afluria 2018-09-17 Completed [facility] 09:57:00 - [facility] Afluria Afluria 2018-09-17 Completed [facility] 09:57:00 - [facility] Afluria Afluria 2018-09-17 Completed [facility] 09:57:00 - [facility] Afluria Afluria 2018-09-17 Completed [facility] 09:57:00 - [facility] Vitamin B12 Vitamin B12 2018-04-17 Completed Common Spiri t (Cyanocobalamin) (Cyanocobalamin) 09:26:00 - [facility] Adacel (Tdap) Adacel (Tdap) 2018-04-10 Completed Common S pirit 11:05:00 - [facility] Adacel (Tdap) Adacel (Tdap) 2018-04-10 Completed Common S pirit 11:05:00 - [facility] Adacel (Tdap) Adacel (Tdap) 2018-04-10 Completed Common S pirit 11:05:00 - [facility] Adacel (Tdap) Adacel (Tdap) 2018-04-10 Completed Common S pirit 11:05:00 - [facility] Adacel (Tdap) Adacel (Tdap) 2018-04-10 Completed Common S pirit 11:05:00 - [facility] Adacel (Tdap) Adacel (Tdap) 2018-04-10 Completed Common S pirit 11:05:00 - [facility] Adacel (Tdap) Adacel (Tdap) 2018-04-10 Completed Common S pirit 11:05:00 - [facility] Adacel (Tdap) Adacel (Tdap) 2018-04-10 Completed Common S pirit 11:05:00 - [facility] Adacel (Tdap) Adacel (Tdap) 2018-04-10 Completed Common S pirit 11:05:00 - [facility] Adacel (Tdap) Adacel (Tdap) 2018-04-10 Completed Common S pirit 11:05:00 - [facility] Adacel (Tdap) Adacel (Tdap) 2018-04-10 Completed Common S pirit 11:05:00 - [facility] TDAP > 7 TDAP > 7 2018-04-10 Completed Common [facility] Years-Adacel Years-Adacel 00:00:00 - [facility] Vital Signs Vital Name Observation Time Observation Value Comments Source height 2022-11-16 08:20:00 67.5 [in_i] [facility] weight 2022-11-16 08:20:00 190 [lb_av] [facility] temperature 2022-11-16 08:20:00 98 [degF] [facility] bmi 2022-11-16 08:20:00 29.32 kg/m2 [facility] blood pressure 2022-11-16 08:20:00 128 mm[Hg] [facility] - systolic [facility] blood pressure 2022-11-16 08:20:00 73 mm[Hg] [facility] - diastolic [facility] height 2022-08-17 08:10:00 67.5 [in_i] [facility] weight 2022-08-17 08:10:00 190 [lb_av] Common S pirit [facility] temperature 2022-08-17 08:10:00 97.0 [degF] Common S pirit [facility] bmi 2022-08-17 08:10:00 29.32 kg/m2 Common [facility] oximetry 2022-08-17 08:10:00 99 % [facility] respiratory rate 2022-08-17 08:10:00 16 /min Comm on [facility] blood pressure 2022-08-17 08:10:00 127 mm[Hg] [facility] - systolic [facility] blood pressure 2022-08-17 08:10:00 74 mm[Hg] [facility] - diastolic [facility] height 2022-05-16 11:10:00 68 [in_i] Common S [facility] weight 2022-05-16 11:10:00 208 [lb_av] [facility] temperature 2022-05-16 11:10:00 98 [degF] Common S pirit [facility] bmi 2022-05-16 11:10:00 31.62 kg/m2 Common S pirit - [facility] blood pressure 2022-05-16 11:10:00 122 mm[Hg] [facility] - systolic [facility] blood pressure 2022-05-16 11:10:00 78 mm[Hg] [facility] - diastolic [facility] height 2022-02-07 07:50:00 68 [in_i] Common S pirit [facility] weight 2022-02-07 07:50:00 203 [lb_av] [facility] temperature 2022-02-07 07:50:00 97.4 [degF] [facility] bmi 2022-02-07 07:50:00 30.86 kg/m2 Common S pirit - [facility] blood pressure 2022-02-07 07:50:00 125 mm[Hg] [facility] - systolic [facility] blood pressure 2022-02-07 07:50:00 76 mm[Hg] [facility] - diastolic [facility] height 2021-10-12 07:50:00 68 [in_i] Common S [facility] weight 2021-10-12 07:50:00 198 [lb_av] [facility] temperature 2021-10-12 07:50:00 98 [degF] [facility] bmi 2021-10-12 07:50:00 30.1 kg/m2 [facility] blood pressure 2021-10-12 07:50:00 122 mm[Hg] Common [facility] - systolic [facility] blood pressure 2021-10-12 07:50:00 70 mm[Hg] [facility] - diastolic [facility] height 2021-09-14 08:00:00 68 [in_i] [facility] weight 2021-09-14 08:00:00 196.1 [lb_av] [facility] temperature 2021-09-14 08:00:00 97.4 [degF] [facility] bmi 2021-09-14 08:00:00 29.81 kg/m2 [facility] oximetry 2021-09-14 08:00:00 98 % [facility] respiratory rate 2021-09-14 08:00:00 16 /min Comm on [facility] blood pressure 2021-09-14 08:00:00 125 mm[Hg] Common [facility] - systolic [facility] blood pressure 2021-09-14 08:00:00 72 mm[Hg] Common [facility] - diastolic [facility] Procedures This patient has no known procedures. Encounters Start End Encounter Admission Attending Care Care Encounter Source Date/Time Date/Time Type Type Clinicians Facility Department ID 2022-11-15 Outpatient Catalan, STLMLC STLMLC [id number] Common 15:09:00 Anselmo [id number] [facility] 2022-11-14 Outpatient Catalan, STLMLC STLMLC [id number] Common 08:47:01 Anselmo 54641 [facility] 2021-12-22 Outpatient Catalan, STLMLC STLMLC [id number] Common 14:01:35 Anselmo 79710 [facility] 2021-12-22 Outpatient Catalan, STLMLC STLMLC [id number] Common 12:19:41 Anselmo 95145 [facility] 2021-12-22 Outpatient Catalan, STLMLC STLMLC [id number] Common 12:19:33 Anselmo 38979 [facility] 2021-12-22 Outpatient Catalan, STLMLC STLMLC [id number] Common 12:18:54 Anselmo 43791 [facility] 2021-12-22 Outpatient Catalan, STLMLC STLMLC [id number] Common 12:17:49 Anselmo 95133 [facility] 2021-12-22 Outpatient Catalan, STLMLC STLMLC [id number] Common 11:46:48 Anselmo 73042 [facility] 2022-12-02 2022-12-02 (TEL) STLMLC STLMLC [id number] Co mmon 00:00:00 00:00:00 [facility] 2022-11-16 2022-11-16 OFFICE STLMLC STLMLC [id number] Co mmon 00:00:00 00:00:00 VISIT [facility] ESTAB PT [facility] LEVEL 4 [facility] 2022-08-17 2022-08-17 PREV VISIT STLMLC STLMLC [id number] Common 00:00:00 00:00:00 EST AGE [facility] 40-66 [facility] 2022-05-16 2022-05-16 OFFICE STLMLC STLMLC [id number] Co mmon 00:00:00 00:00:00 [facility]ISIT [facility] - [facility] LEVEL 4 [facility] 2022-05-09 2022-05-09 (TEL) STLMLC STLMLC [id number] Co mmon 00:00:00 00:00:00 [facility] 2022-05-09 2022-05-09 (TEL) STLMLC STLMLC [id number] Co mmon 00:00:00 00:00:00 [facility] 2022-03-10 2022-03-10 (TEL) STLMLC STLMLC [id number] Co mmon 00:00:00 00:00:00 [facility] 2022-02-07 2022-02-07 OFFICE STLMLC STLMLC [id number] Co mmon 00:00:00 00:00:00 VISIT [facility] ESTAB PT - CHI LEVEL 4 [facility] 2021-10-12 2021-10-12 OFFICE STLMLC STLMLC [id number] Co mmon 00:00:00 00:00:00 VISIT [facility] ESTAB PT - CHI LEVEL 4 [facility] 2021-09-14 2021-09-14 PREV VISIT STLMLC STLMLC [id number] Common 00:00:00 00:00:00 EST AGE [facility] 40-64 [facility] 2021-06-07 2021-06-07 Outpatient STLMLC STLMLC [id number] Common 00:00:00 00:00:00 [facility] 2020-12-07 2020-12-07 Outpatient STLMLC STLMLC [id number] Common 00:00:00 00:00:00 [facility] 2020-08-28 2020-08-28 Outpatient STLMLC STLMLC [id number] Common 00:00:00 00:00:00 [facility] 2020-08-13 2020-08-13 [facility] [id number] Common 16:00:00 16:00:00 [employer] [facility] 2020-08-10 2020-08-10 [facility] [id number] Common 08:04:00 08:04:[address] [facility] 2020-08-06 2020-08-06 [facility] [id number] Common 16:10:00 16:10:[address] [facility] 2020-05-27 2020-05-27 [facility] [id number] Common 10:00:00 10:00:[address] [facility] 2020-02-18 2020-02-18 [facility] [id number] Common 08:30:00 08:30:[address] [facility] 2019-11-19 2019-11-19 [facility] [id number] Common 08:00:00 08:00:[address] [facility] 2019-11-12 2019-11-12 [facility] [id number] Common 16:42:00 16:42:[address] [facility] 2019-08-21 2019-08-21 [facility] [id number] Common 08:00:00 08:00:[address] [facility] 2019-08-05 2019-08-05 [facility] [id number] Common 13:30:00 13:30:[address] [facility] 2019-05-21 2019-05-21 [facility] [id number] Common 08:15:00 08:15:[address] [facility] 2018-12-20 2018-12-20 [facility] [id number] Common 09:45:00 09:45:[address] [facility] 2018-06-18 2018-06-18 [facility] [id number] Common 08:45:00 08:45:[address] [facility] 2018-06-11 2018-06-11 [facility] [id number] Common 11:57:00 11:57:[address] [facility] 2018-04-17 2018-04-17 [facility] [id number] Common 09:00:00 09:00:[address] [facility] 2018-04-11 2018-04-11 [facility] [id number] Common 07:21:00 07:21:[address] [facility] 2018-04-10 2018-04-10 [facility] [id number] Common 10:30:00 10:30:[address] [facility] Results This patient has no known results.
--- NOTE | 2023-01-07 21:53 | ER ---
Nurse's Notes [facility] Name: Gabino Forde Age: 52 yrs Sex: Male : 1970 Arrival Date: 01/07/2023 Time: 21:03 Bed 16 Private MD: Anselmo Catalan Diagnosis: Bitten by dog, initial encounter Presentation: 01/07 21:19 Chief complaint: Patient states: C/o dog bite to left calf since Monday, wound is ll3 reddened and purple, states is only pain to touch. Coronavirus screen: Vaccine status: Patient reports receiving the 2nd dose of the covid vaccine. At this time, the client does not indicate any symptoms associated with coronavirus-19. Ebola Screen: No symptoms or risks identified at this time. Initial Sepsis Screen: Does the patient meet any 2 criteria? HR > 90 bpm. No. Patient's initial sepsis screen is negative. Does the patient have a suspected source of infection? Yes: Skin breakdown/wound. Risk Assessment: Do you want to hurt yourself or someone else? Patient reports no desire to harm self or others. Onset of symptoms was January 04, 2023. 21:19 Method Of Arrival: Ambulatory ll3 21:19 Acuity: LARRY 3 ll3 Triage Assessment: 21:22 Bite description: bite sustained to left calf by a dog, animal information: Appearance: ll3 appeared well, is from animal, vaccination(s) is current, was sustained 3 days Animal status: unknown and not captured, Animal control has not been notified. General: Appears uncomfortable, Behavior is calm, cooperative. Pain: Complains of pain in left calf. Derm: Wound noted left calf. Historical: - Allergies: 21:22 No Known Allergies; ll3 - Home Meds: 21:22 Metformin Oral [Active]; Simvastatin Oral [Active]; ll3 - PMHx: 21:22 Diabetes Type 2; High Cholesterol; ll3 - PSHx: 21:22 None; ll3 - Immunization history:: Client reports receiving the 2nd dose of the Covid vaccine. - Social history:: Smoking status: Patient denies any tobacco usage or history of. Screenin:20 [facility] ED Fall Risk Assessment (Adult) History of falling in the last 3 months, ke1 including since admission No falls in past 3 months (0 pts) Confusion or Disorientation No (0 pts) Intoxicated or Sedated No (0 pts) Impaired Gait No (0 pts) Mobility Assist Device Used No (0 pt) Altered Elimination No (0 pt) Score/Fall Risk Level 0 - 2 = Low Risk. Abuse screen: Denies threats or abuse. Nutritional screening: No deficits noted. Tuberculosis screening: No symptoms or risk factors identified. Assessment: 21:20 Derm: Skin Skin is pink, warm \T\ dry. Wound noted left calf. ke1 22:05 Derm:. ke1 Vital Signs: 21:19 BP 136 / 102; Pulse 94; Resp 18; Temp 99.2(O); Pulse Ox 99% on R/A; Weight 86.18 kg ll3 (R); Height 5 ft. 8 in. (172.72 cm) (R); 21:19 Body Mass Index 28.89 (86.18 kg, 172.72 cm) ll3 ED Course: 21:03 Patient arrived in ED. mr 21:04 Anselmo Catalan DO is Private Physician. mr 21:20 Bed in low position. Call light in reach. ke1 21:22 Triage completed. ll3 21:22 Arm band placed on. ll3 21:37 Jett Lion DO is Attending Physician. ms3 21:47 Campos Vela, THANH is Primary Nurse. ke1 21:48 Anselmo Catalan DO is Referral Physician. ms3 21:56 No provider procedures requiring assistance completed. ke1 22:06 Patient did not have IV access during this emergency room visit. ke1 Administered Medications: 22:02 Drug: Augmentin (Amoxicillin-Clavulanate) 875 mg Route: PO; ke1 Medication: 22:06 VIS not applicable for this client. ke1 Outcome: 21:53 Discharge ordered by MD. ms3 22:05 Discharged to home ambulatory. ke1 22:05 Condition: good 22:05 Discharge instructions given to patient. 22:06 Patient left the ED. ke1 Signatures: Ro Quintana mr Jett Lion DO DO ms3 Anya Parra RN RN 3 Campos Vela RN RN ke1 Corrections: (The following items were deleted from the chart) 22:05 21:20 Derm: Skin Skin is pink, warm \T\ dry. ke1 ke1
[2023-01-07] MEDS ORDERED: AMOX/K CLAV 875 MG TAB ONE (22:01)
[2023-01-07 22:55] VITALS: BP 136/102; TEMP 99.2; O2SAT 99
--- NOTE | 2023-01-08 22:06 | EDPHYS ---
Physician Documentation [facility] Name: Gabino Forde Age: 52 yrs Sex: Male : 1970 Arrival Date: 01/07/2023 Time: 21:03 Bed 16 Private MD: [facility] ED Physician Jett Lion HPI: 01/07 21:53 This 52 yrs old Male presents to ER via Ambulatory with complaints of Dog Bite. ms3 21:53 52-year-old male with past medical history of diabetes type 2, and hyperlipidemia ms3 presents for dog bite that occurred on Monday. Patient denies pain at this time. Patient endorses redness around the bite. Patient denies alleviating or inciting factors.. Historical: - Allergies: 21:22 No Known Allergies; ll3 - Home Meds: 21:22 Metformin Oral [Active]; Simvastatin Oral [Active]; ll3 - PMHx: 21:22 Diabetes Type 2; High Cholesterol; ll3 - PSHx: 21:22 None; ll3 - Immunization history:: Client reports receiving the 2nd dose of the Covid vaccine. - Social history:: Smoking status: Patient denies any tobacco usage or history of. ROS: 21:53 Constitutional: Negative for fever, and chills. Neck: Negative for injury, pain, and ms3 swelling, Cardiovascular: Negative for chest pain, and palpitations. Respiratory: Negative for shortness of breath, cough, wheezing, and pleuritic chest pain, Abdomen/GI: Negative for abdominal pain, nausea, vomiting, diarrhea, and constipation. 21:53 Skin: Positive for abrasion(s), erythema, of the left calf. 21:53 All other systems are negative. Exam: 21:53 Constitutional: This is a well developed, well nourished patient who is awake, alert, ms3 and in no acute distress. Head/Face: Normocephalic, atraumatic. Neck: Trachea midline, no cervical lymphadenopathy. Supple, full range of motion without nuchal rigidity, or vertebral point tenderness. No Meningismus. Chest/axilla: Normal chest wall appearance and motion. Nontender with no deformity. Respiratory: Lungs have equal breath sounds bilaterally, clear to auscultation and percussion. No rales, rhonchi or wheezes noted. No increased work of breathing, no retractions or nasal flaring. Abdomen/GI: Soft, non-tender, with normal bowel sounds. No distension or tympany. No guarding or rebound. No evidence of tenderness throughout. 21:53 Skin: injury, bite(s), superficial, jagged, of the left calf, Erythema adjacent to the bites.. Vital Signs: 21:19 BP 136 / 102; Pulse 94; Resp 18; Temp 99.2(O); Pulse Ox 99% on R/A; Weight 86.18 kg ll3 (R); Height 5 ft. 8 in. (172.72 cm) (R); 21:19 Body Mass Index 28.89 (86.18 kg, 172.72 cm) ll3 MDM: 21:48 Patient medically screened. ms3 21:53 Differential diagnosis: superficial laceration, cellulitis. Data reviewed: vital signs, ms3 nurses notes, and as a result, I will discharge patient. I considered the following discharge prescriptions or medication management in the emergency department Medications were administered in the Emergency Department. See MAR. Counseling: I had a detailed discussion with the patient and/or guardian regarding: the historical points, exam findings, and any diagnostic results supporting the discharge/admit diagnosis, the need for outpatient follow up, to return to the emergency department if symptoms worsen or persist or if there are any questions or concerns that arise at home. ED course: Patient given Augmentin in the emergency department and a prescription for Augmentin for outpatient use. Patient to follow-up with his primary care physician in 2 to 3 days for reevaluation. Patient understands and agrees with plan. All questions were answered. Return precautions discussed include worsening symptoms, fevers, increased pain, drainage, or any other concerns.. Administered Medications: 22:02 Drug: Augmentin (Amoxicillin-Clavulanate) 875 mg Route: PO; ke1 Disposition Summary: 01/07/23 21:53 Discharge Ordered Location: Home ms3 Condition: Stable ms3 Diagnosis - Bitten by dog, initial encounter ms3 Followup: ms3 - With: Anselmo Catalan DO - When: 2 - 3 days - Reason: Recheck today's complaints Discharge Instructions: - Discharge Summary Sheet ms3 - Animal Bite, Adult, [id number] ms3 Forms: - Medication Reconciliation Form ms3 - Thank You Letter ms3 - Antibiotic Education ms3 - Prescription Opioid Use ms3 Prescriptions: - Augmentin 875-125 mg Oral Tablet - take 1 tablet by ORAL route every 12 hours for 10 days; 20 tablet; Refills: 0, ms3 Product Selection Permitted Signatures: Jett Lion DO DO ms3 Anya Parra RN RN ll3 Campos Vela RN RN ke1
== END 2023-01-07 22:06 | disposition home or self-care (01) ==
LOC: ER 21:00
DX: S80.812A Abrasion, left lower leg, initial encounter (principal); W54.0XXA Bitten by dog, initial encounter; E11.9 Type 2 diabetes mellitus without complications; E78.5 Hyperlipidemia, unspecified
CPT/HCPCS: 99283